=== PATIENT | male | born 1945 | race Hispanic/Latino ===

== ENCOUNTER → 2018-12-05 | Day surgery (SDC) | payer MEDICARE, OTHER ==
[2018-11-28 15:40] LABS: BASOPHILS # (AUTO) 0.1 (0.0-0.1); BASOPHILS % 0.7 % (0.0-1.0); EOSINOPHILS # (AUTO) 0.3 (0.0-0.4); HEMATOCRIT 44.6 % (38.2-49.6); HEMOGLOBIN 15.3 g/dL (14.0-18.0); LYMPHOCYTES # (AUTO) 2.4 (1.0-3.2); LYMPHOCYTES % 28.4 % (18.0-39.1); MEAN CORPUSCULAR HEMOGLOBIN 29.4 pg (28-32); MEAN CORPUSCULAR HGB CONC 34.3 g/dL (31-35); MEAN CORPUSCULAR VOLUME 85.8 fL (81-99); MONOCYTES # (AUTO) 0.6 (0.2-0.8); MONOCYTES % 7.5 % (4.4-11.3); NEUTROPHILS % 58.9 % (38.7-80.0); PLATELET COUNT 235 x10e3/uL (140-360); RED CELL DISTRIBUTION WIDTH 13.4 % (11.7-14.4)
[2018-11-28 15:58] LABS: ALBUMIN 3.9 g/dL (3.5-5.0); ALBUMIN/GLOBULIN RATIO 1.1 (0.8-2.0); CALCIUM 9.2 mg/dL (8.4-10.2); CREATININE, SERUM 1.36 mg/dL (0.72-1.25)
--- NOTE | 2018-11-28 16:01 | Diagnostic Imaging Report ---
Frontal and lateral views of the chest. HISTORY: PRE ADMIT , left inguinal hernia COMPARISON: None available. DISCUSSION: Lungs: Low lung volumes result in bibasilar vascular crowding, accentuation of the pulmonary interstitial markings, central pulmonary vasculature, and the cardiac silhouette. Allowing for these limitations, the findings are as follows: No evidence of a consolidative pneumonia or pulmonary alveolar edema. Pleura: No pleural effusion or pneumothorax. Heart and mediastinum: The cardiomediastinal silhouette appears unremarkable. Bones and soft tissues: Mild kyphosis in the region of the thoracolumbar junction with age-indeterminate multilevel mild anterior vertebral body wedging, this may be physiologic. IMPRESSION: 1. Lower thoracic kyphosis with mild age-indeterminate multilevel anterior wedge compression deformities. 2. Otherwise, no acute radiographic abnormality. Signed by: Dr. Kwabena Leos D.O., M.M.M. on 11/28/2018 3:58 PM
[~2018-12-05] MED LIST: ACETAMINOPHEN 1000 MG/100 ML IV ONE; BACITRACIN 50,000 UNIT VIAL ONE; BUPIVACAINE 0.25% 30ML SDV INJ ONE; BUPIVACAINE HCL 0.5% INJ 30 ML VIAL INJ ONE; CEFAZOLIN SOD 1 GM/NS 50ML 50 ML IV ONE; EPHEDRINE SULFATE INJ 50 MG/10 ML SYR ONE; FENTANYL CITRATE/PF 100MCG/2 ML INJ ONE; HYDROMORPHONE 2MG/ML 2 MG/ML ML ONE; LIDOCAINE HCL 2% LOCAL INJ 5 ML SDV VIAL INJ ONE; MIDAZOLAM HCL 2 MG/2 ML VIAL ONE; PROPOFOL IV EMULSION 10 MG/ML 20 ML VIAL ONE
--- OUTSIDE RECORDS SUMMARY | 2018-12-05 11:50 | XMS REPORT ---
Author [facility] Address Unknown Phone Unavailable Care Team Providers Care Salt Refiner Name Role Phone PARIS HIGHTOWER Unavailable Unavailable Payers Payer Name Policy Type Policy Number Effective Date Expiration Date Problems This patient has no known problems. Allergies, Adverse Reactions, Alerts This patient has no known allergies or adverse reactions. Medications This patient has no known medications. Results Test Description Test Time Test Comments Text Results Atomic Results Result Comments CHEST 2 VIEWS 2018-11-28 15:56:00 [place] [address] Patient Name: ANTOINETTE CHACON MR #: [id number] : 1945 Age/Sex: 73/M Req #: [id number] Adm Physician: Ordered by: PARIS HIGHTOWER MD Report #: [id number] Location: OR Room/Bed: Procedure: [id number] DX/CHEST 2 VIEWS Exam Date: 11/28/18 Exam Time: 1530 REPORT STATUS: Signed Frontal and lateral views of the chest. HISTORY: PRE ADMIT , left inguinal hernia COMPARISON: None available. DISCUSSION: Lungs: Low lung volumes result in bibasilar vascular crowding, accentuation of the pulmonary interstitial markings, central pulmonary vasculature, and the cardiac silhouette. Allowing for these limitations, the findings are as follows: No evidence of a consolidative pneumonia or pulmonary alveolar edema. Pleura: No pleural effusion or pneumothorax. Heart and mediastinum: The cardiomediastinal silhouette appears unremarkable. Bones and soft tissues: Mild kyphosis in the region of the thoracolumbar junction with age-indeterminate multilevel mild anterior vertebral body wedging, this may be physiologic. IMPRESSION: 1. Lower thoracic kyphosis with mild age-indeterminate multilevel anterior wedge compression deformities. 2. Otherwise, no acute radiographic abnormality. Signed by: Dr. Isidro Leos D.O., M.M.M. on 11/28/2018 3:58 PM Dictated By: ISIDRO LEOS DO [id number] Transcribed By: PAMELA on 11/28/18 1558 COPY TO: PARIS HIGHTOWER MD
[2018-12-05 18:00] VITALS: BP 141/87
--- NOTE | 2018-12-06 20:13 | Operative Report ---
DATE OF PROCEDURE: 12/05/2018 SURGEON: Tucker Fallon MD PREOPERATIVE DIAGNOSIS: Recurrent left inguinal hernia. FINAL DIAGNOSIS: Recurrent left inguinal hernia. OPERARTION PERFORMED: Left inguinal hernia repair with left orchiectomy, inguinal. ANESTHESIOLOGIST: Staff. ANESTHESIA: General. ESTIMATED BLOOD LOSS: 5 to 10 mL. COUNTS: Sponge, needle count and instrument count was correct. BRIEF HISTORY: The patient with two previous failed surgeries in the left inguinal area. The incisions that were done were subpubic and the surgeries were done in [place]. Both of those surgeries the patient states failed right away after the surgery. At this point, the patient is symptomatologically positive for pain and discomfort and his testicle on the left side is atrophic and painful. We discussed the possibility of needing an orchiectomy. The patient wanted to keep his testicles if possible, but I told him that on the third trial, there may be some much scar tissue and not knowing exactly what was done that potentially the testicle would need to be removed in order to correct the surgery to avoid another recurrence. The patient did agree with this. PROCEDURE IN DETAIL: With the patient under satisfactory general anesthesia, the patient was placed in the supine position on the operating table. Genitalia was shaved with jeffrey, prepped with Betadine soap and solution and draped in the usual manner. The patient had been marked for the left surgery, and we took a time-out to agree on the patient and the procedure as planned. The patient was checked before the procedure was initiated. At this point, local anesthetic was injected subcuticularly and subcutaneously. The anesthetic use was 0.25% Marcaine, also injected throughout the case in the cord as well as the rectus muscle and the external and internal oblique muscle. Once an anesthetic was located and incision was made along the crease line of the skin approximately 1 cm above the symphysis pubis. This was carried down through scar tissue. Tremendous amount of scar tissue was noted around the external inguinal ring and down towards the scrotum. Previous incisions where very low compatible with trying to put some kind of mesh or sutures in this area, although no mesh was found. The lateral tissue reaction was identified in this area. The identification of the external oblique fascia was done way above the internal inguinal ring. The incision was carried. The dissection was carried down towards the external oblique fascia. I lifted up the skin to go into the cord structures, which I finally found, located posteriorly and lateral. Finally, opening up the area of the external oblique fascia along these fibers and dissecting and lifting flaps, the vas deferens was found. The cord was found. The internal inguinal ring going into the retroperitoneal area. This took quite a bit of dissection. An extremely large hernia was found, it had completely destroyed the floor of the inguinal canal. Dissection was carried to put the intestines back into the abdomen. The hernia was indirect all the way and after dissection, multiple sutures were placed to imbricate the hernia. These sutures were done of 2-0 Monocryl. Once the hernia was reduced then a piece of UltraPro mesh was cut into the area finding the Poupart's ligament. The first suture was placed in Poupart and then laterally. A running suture of 2-0 Ethibond was used to fix edge of the mesh to the inguinal ligament as far up as I could go, after that the middle portion of the mesh was then fixed to the linea alba, the conjoint tendon of the rectus muscle posteriorly. Again, multiple sutures were placed as far as the incision would allow me and then I laid the entire piece of mesh under the external oblique fascia. At this point again irrigation was made, bleeding points were electrocoagulated. The testicle had to be sacrificed prior to putting the mesh in and this was done by placing hemostats on the cord and on the vas. It was transected, blocked with local anesthetic and doubly ligated using anchoring sutures of 2-0 Vicryl. The specimen was sent to the lab. It was also noted again that the testicle was small in nature. After the orchidectomy was made and the mesh was placed appropriately and sutured in place, then the external oblique fascia was closed using a running suture of 2-0 Vicryl, subcutaneously 2-0 Vicryl and subcuticularly 4-0 Monocryl on a cutting needle with Steri-Strips and Dermabond on the skin as a dressing. At this point, the patient was taken to the recovery room in satisfactory condition. DISCHARGE INSTRUCTIONS: The patient was given tramadol for pain. The patient would be sent home and I will follow up in the office in the next 2 to 3 weeks. I discussed with the family the findings, the reason for the need of the orchectomy. He is to have diet as tolerated. Activity as tolerated and he was told to make sure that he took stool softeners to prevent constipation from the secondary effects of tramadol that he was given for pain. MD CHELSEA Walden/MODL /[id number]
== END | disposition home or self-care (01) ==
LOC: OR 11:47
PROVIDERS: ATTEND Urology
DX: K40.91 Unilateral inguinal hernia, without obstruction or gangrene, recurrent (principal); Z01.810 Encounter for preprocedural cardiovascular examination; Z01.812 Encounter for preprocedural laboratory examination; Z01.811 Encounter for preprocedural respiratory examination; R31.29 Other microscopic hematuria; Z87.442 Personal history of urinary calculi; Z80.9 Family history of malignant neoplasm, unspecified; Z83.3 Family history of diabetes mellitus; N50.812 Left testicular pain
CPT/HCPCS: 36415; 49520; 54520; 71046; 80053; 85025; 87086; 88307; 93005; C1781; J0690; J1170; J2250; 88302; J2001